=== PATIENT | male | born 1995 | race African-American/Black ===

== ENCOUNTER 2017-05-16 04:13 | Emergency (ER) | payer BC ==
[~2017-05-16] VITALS: Ht 195.6 cm; Wt 77.0 kg
[2017-05-16 04:14] VITALS: BP 151/67; PULSE 117; RESP 20; TEMP 98.1; O2SAT 98
[2017-05-16] MEDS ORDERED: SODIUM CHLOR 0.9% 1000 ML INJ 1,000 ML IV SCH (05:53)
--- NOTE | 2017-05-16 05:59 | PD ---
HPI Chief Complaint: GI Complaint Time Seen by Provider: 05:46 Travel History International Travel<30 days: No Contact w/Intl Traveler<30days: No Traveled to known affect area: No History of Present Illness HPI Swollen 21-year-old presents emergent department nausea vomiting abdominal pain. Symptoms started today. He said no change in his bowel movements. Last bowel movement was today. No history of abdominal surgery. He's had some chills. He states about 1 AM he started getting diffuse generalized crampy abdominal pain associated with nausea and vomiting. No cough cold symptoms. No urinary symptoms. No definite sick contacts. No undercooked or unusual foods. History Past Medical History Medical History: Denies Significant Hx Past Surgical History Surgical History: No Previous Surgery Social History Alcohol Use: No Tobacco Use: No Allergies-Medications (Allergen,Severity, Reaction): Coded Allergies: No Known Allergies (Unverified , 05/16/17) Reported Meds & Prescriptions Reported Meds & Active Scripts Active No Active Prescriptions or Reported Medications Review of Systems Except as stated in HPI: all other systems reviewed are Neg Physical Exam Narrative GENERAL: 21-year-old man, appears uncomfortable, holding his abdomen. SKIN: Focused skin assessment warm/dry. HEAD: Atraumatic. Normocephalic. EYES: Pupils equal and round. No scleral icterus. No injection or drainage. ENT: No nasal bleeding or discharge. Mucous membranes pink and moist. NECK: Trachea midline. No JVD. CARDIOVASCULAR: Regular rate and rhythm. No murmur appreciated. RESPIRATORY: No accessory muscle use. Clear to auscultation. Breath sounds equal bilaterally. GASTROINTESTINAL: Head is flat and soft. He describes diffuse generalized tenderness. There is no grimace or complaints of pain with deep palpation. There is no evidence of appendicitis on exam. MUSCULOSKELETAL: No obvious deformities. No edema. NEUROLOGICAL: Awake and alert. No obvious cranial nerve deficits. Motor grossly within normal limits. Normal speech. Data Data Last Documented VS Vital Signs Date Time Temp Pulse Resp B/P (MAP) Pulse Ox O2 Delivery O2 Flow Rate FiO2 05/16/17 04:14 98.1 117 20 151/67 (95) 98 Room Air Orders Orders Complete Blood Count With Diff (05/16/17 05:53) Comprehensive Metabolic Panel (05/16/17 05:53) Lipase (05/16/17 05:53) Urinalysis - C+S If Indicated (05/16/17 05:53) Iv Access Insert/Monitor (05/16/17 05:53) Ondansetron Inj (Zofran Inj) (05/16/17 06:00) Sodium Chlor 0.9% 1000 Ml Inj (Ns 1000 M (05/16/17 05:53) Sodium Chloride 0.9% Flush (Ns Flush) (05/16/17 06:00) Labs Laboratory Tests Test 05/16/17 06:00 White Blood Count 11.0 TH/MM3 Red Blood Count 5.37 MIL/MM3 Hemoglobin 15.5 GM/DL Hematocrit 47.4 % Mean Corpuscular Volume 88.2 FL Mean Corpuscular Hemoglobin 28.9 PG Mean Corpuscular Hemoglobin Concent 32.7 % Red Cell Distribution Width 13.2 % Platelet Count 194 TH/MM3 Mean Platelet Volume 8.4 FL Neutrophils (%) (Auto) 83.6 % Lymphocytes (%) (Auto) 11.5 % Monocytes (%) (Auto) 4.3 % Eosinophils (%) (Auto) 0.0 % Basophils (%) (Auto) 0.6 % Neutrophils # (Auto) 9.2 TH/MM3 Lymphocytes # (Auto) 1.3 TH/MM3 Monocytes # (Auto) 0.5 TH/MM3 Eosinophils # (Auto) 0.0 TH/MM3 Basophils # (Auto) 0.1 TH/MM3 CBC Comment DIFF FINAL Differential Comment Blood Urea Nitrogen 10 MG/DL Creatinine 1.07 MG/DL Random Glucose 118 MG/DL Total Protein 9.1 GM/DL Albumin 4.7 GM/DL Calcium Level 10.2 MG/DL Alkaline Phosphatase 63 U/L Aspartate Amino Transf (AST/SGOT) 25 U/L Alanine Aminotransferase (ALT/SGPT) 30 U/L Total Bilirubin 0.8 MG/DL Sodium Level 137 MEQ/L Potassium Level 3.7 MEQ/L Chloride Level 103 MEQ/L Carbon Dioxide Level 22.7 MEQ/L Anion Gap 11 MEQ/L Estimat Glomerular Filtration Rate 89 ML/MIN Lipase 81 U/L [facility] Medical Decision Making Medical Screen Exam Complete: Yes Emergency Medical Condition: Yes Interpretation(s) LABS: CBC is unremarkable. CMP is unremarkable. Lipase is unremarkable UA: Differential Diagnosis Gastroenteritis, gastritis, renal lithiasis, pancreatitis, hepatobiliary disease , infection, other Narrative Course Medical decision making INITIAL: This a 21-year-old young man who presents to the emergency department with nausea vomiting abdominal pain. Likely cramping and looks uncomfortable however he has a very benign exam. We'll check labs, urine for any evidence of hematuria or kidney stone, IV fluids and symptomatic control, reassess. Diagnosis Primary Impression: Gastritis Additional Instructions: Use Zofran as needed for nausea or vomiting. Drink plenty of fluids to stay well-hydrated. Return to the emergency department for any new or worsening symptoms. Med/Other Pt SpecificInfo: Prescription(s) given Scripts Ondansetron Odt (Zofran Odt) 4 Mg Tab 4 MG SL Q6HR Y for Nausea/Vomiting, #12 TAB 0 Refills Prov: Ruben Kirkland MD 05/16/17 Disposition: 01 DISCHARGE HOME Condition: Stable Ruben Kirkland MD May 16, 2017 05:59
[2017-05-16] MEDS ORDERED: SODIUM CHLORIDE 0.9% FLUSH 10 ML FLUSH IV FLUSH PRN (06:00)
[2017-05-16] MEDS ORDERED: ONDANSETRON HCL 4 MG/2 ML VIAL IVP ONE (06:00)
[2017-05-16 06:31] LABS: AUTOMATED NEUTROPHIL # 9.2 TH/MM3 (1.8-7.7); BASOPHIL # 0.1 TH/MM3 (0-0.2); BASOPHIL % 0.6 % (0.0-2.0); HEMATOCRIT 47.4 % (39.0-51.0); HEMO FLAGS DIFF FINAL; LYMPH % 11.5 % (9.0-44.0); LYMPHOCYTE # 1.3 TH/MM3 (1.0-4.8); MEAN CELL VOLUME 88.2 FL (80.0-100.0); MEAN CORPUSCULAR HEMOGLOBIN 28.9 PG (27.0-34.0); MEAN CORPUSCULAR HGB CONC 32.7 % (32.0-36.0); MONO % 4.3 % (0.0-8.0); NEUT % 83.6 % (16.0-70.0); PLATELET COUNT 194 TH/MM3 (150-450); RED BLOOD COUNT 5.37 MIL/MM3 (4.50-5.90); RED CELL DISTRIBUTION WIDTH 13.2 % (11.6-17.2)
[2017-05-16 06:34] LABS: ALT (GPT) 30 U/L (9-52); ANION GAP 11 MEQ/L (5-15); AST (GOT) 25 U/L (15-39); BICARBONATE 22.7 MEQ/L (21.0-32.0); BLOOD UREA NITROGEN 10 MG/DL (7-18); CHLORIDE 103 MEQ/L (98-107); GLOMERULAR FILTRATION RATE 89 ML/MIN (>89); POTASSIUM 3.7 MEQ/L (3.5-5.1); SODIUM (NA) 137 MEQ/L (136-145)
[2017-05-16 06:36] LABS: ALKALINE PHOSPHATASE 63 U/L (45-117); TOTAL BILIRUBIN ADULT 0.8 MG/DL (0.2-1.0)
[2017-05-16] MEDS ORDERED: ZOFR4TAB3 SL (07:01)
[2017-05-16 07:14] LABS: BLOOD, URINE NEG (NEG); GLUCOSE,URINE NEG (NEG); KETONE, URINE 40 mg/dL (NEG); NITRITE,URINE NEG (NEG); URINE COLOR LIGHT-YELLOW (YELLW/STRAW)
[2017-05-16] MEDS ORDERED: DICY10 PO (07:14)
[2017-05-16 07:16] LABS: COMMENT (UR) CULT NOT INDICATED; CULTURE IF INDICATED CULT NOT INDICATED
[2017-05-16] MEDS ORDERED: DICYCLOMINE HCL 20 MG/2 ML VIAL IM ONE (07:30)
[2017-05-16] MEDS ORDERED: ONDANSETRON HCL 4 MG/2 ML VIAL IV ONE (07:30)
[2017-05-16 07:52] VITALS: BP 113/55; PULSE 116; RESP 20; TEMP 98.4; O2SAT 100
== END 2017-05-16 09:16 | disposition home or self-care (01) ==
LOC: NEPC 04:13
DX: K29.70 Gastritis, unspecified, without bleeding (principal)
CPT/HCPCS: 80053; 81001; 83690; 85025; 96361; 96372; 96374; 96375; 99284; J0500; J2405; J7030